=== PATIENT | female | born 1995 | race Caucasian/White ===

== ENCOUNTER 2021-11-19 16:13 | Inpatient (IN) ==
[2021-11-19] MEDS ORDERED: miSOPROStoL 200 MCG TABLET RECTAL PRN (16:48)
[2021-11-19] MEDS ORDERED: BUTORPHANOL 1 MG/ML VIAL IV PRN (16:48)
[2021-11-19] MEDS ORDERED: METHYLERGONOVINE 0.2 MG/1 ML AMP IM PRN (16:48)
[2021-11-19] MEDS ORDERED: TRANEXAMIC ACID 1,000 MG in SODIUM CHLORIDE 0.9% 100 ML IV PRN (16:48)
[2021-11-19] MEDS ORDERED: CARBOPROST TROMETHAMINE 250 MCG/ML AMP IM PRN (16:48)
[2021-11-19] MEDS ORDERED: OXYTOCIN/LR 20 UNIT/1,000 ML BAG IV ONE (16:48)
[2021-11-19 17:13] LABS: Basophils % 0.3 % (0.0-0.8); Eosinophils % 0.1 % (0.00-10.9); Hematocrit 38.1 VOL% (35.7-47.0); Hemoglobin 12.4 GM/DL (12.0-16.0); Immature Granulocytes % 0.8 %; Immature Granulocytes Absolute 0.07 #; Lymphocytes # 1.7 10*3/uL (1.4-4.0); Lymphocytes % 19.5 % (21.3-54.2); Mean Corpuscular HGB Conc 32.5 GM/DL (32-36); Mean Corpuscular Volume 80.7 FL (87-102); Mean Platelet Volume 11.1 FL (9.6-12.0); Monocytes # 0.6 10*3/uL (0.11-0.8); Monocytes % 6.4 % (1.7-12.7); Neutrophils % 72.9 % (38.7-73.9); Platelet Count 197 T/CUMM (130-400); Red Blood Count 4.72 MC/CUMM (3.8-5.5); Red Cell Distribution Width 15.1 % (9.3-17.3); White Blood Count 8.9 T/CUMM (4-12)
[2021-11-19] MEDS: LACTATED RINGERS 1,000 ML IV SCH (17:28)
[2021-11-19] MEDS: OXYTOCIN/LR 20 UNIT/1,000 ML BAG IV SCH (17:30)
[2021-11-19 17:31] LABS: Alanine Aminotransferase 23 U/L (13-56); Albumin 2.4 G/DL (3.4-5.0); Alkaline Phosphatase 438 U/L (45-117); Aspartate Amino Transferase 19 U/L (0-37); Bilirubin,Total < 0.39 MG/DL (0.20-1.00); Blood Urea Nitrogen 10 MG/DL (7-18); Calcium 9.1 MG/DL (8.5-10.1); Carbon Dioxide 19 MMOL/L (21-32); Chloride 108 MMOL/L (98-107); Glucose 88 MG/DL (74-106); Osmolality,Calculated 270.8 MOS/KG (273-304); Sodium 137 MMOL/L (136-145); Total Protein 6.8 G/DL (6.4-8.2)
[2021-11-19 17:42] LABS: Bilirubin,Direct 0.12 MG/DL (0.0-0.20); Uric Acid 6.6 MG/DL (2.6-6.0)
[2021-11-19 17:48] LABS: INR 0.9; PT Patient Result 9.8 SECS (10.1-12.1); Partial Thromboplastin Time 24.2 SECS (23.7-32.9)
[2021-11-19] MEDS ORDERED: AMPICILLIN INJ 2,000 MG in SODIUM CHLORIDE 0.9% 100 ML IV ONE (20:00)
[2021-11-19] MEDS ORDERED: AMPICILLIN INJ 1,000 MG in SODIUM CHLORIDE 0.9% 100 ML IV SCH (23:30)
[2021-11-20] MEDS: LACTATED RINGERS 1,000 ML IV SCH ×2 (01:30→09:48)
[2021-11-20] MEDS ORDERED: PROMETHAZINE 25 MG/1 ML VIAL IM PRN (10:21)
[2021-11-20] MEDS ORDERED: FAMOTIDINE 20 MG/2 ML VIAL IV ONE (10:21)
[2021-11-20] MEDS ORDERED: hydrOXYzine HCL 25 MG/1 ML VIAL IM PRN (10:21)
[2021-11-20] MEDS ORDERED: ePHEDrine 50 MG/ML VIAL IV PRN (10:21)
[2021-11-20] MEDS ORDERED: CITRIC ACID/SODIUM CITRATE 30 ML UDCUP PO ONE (10:21)
[2021-11-20] MEDS ORDERED: NALOXONE 0.4 MG/ML VIAL IV PRN (10:21)
[2021-11-20] MEDS ORDERED: diphenhydrAMINE 50 MG/1 ML VIAL IV PRN (10:21)
[2021-11-20] MEDS: ONDANSETRON 4 MG/2 ML VIAL IV PRN ×2 (10:32→22:46)
[2021-11-20] MEDS: BUTORPHANOL 2 MG/ML VIAL IV PRN ×2 (10:36→22:49)
[2021-11-20] MEDS: OXYTOCIN/LR 20 UNIT/1,000 ML BAG IV SCH (16:40)
[2021-11-20] MEDS ORDERED: DINOPROSTONE 10 MG VAG.INSERT VAG ONE (20:00)
[2021-11-21] MEDS: BUTORPHANOL 2 MG/ML VIAL IV PRN ×2 (04:34→09:17)
[2021-11-21] MEDS: ONDANSETRON 4 MG/2 ML VIAL IV PRN (09:14)
[2021-11-21] MEDS ORDERED: FAMOTIDINE 20 MG/2 ML VIAL IV ONE (09:30)
[2021-11-21] MEDS ORDERED: CITRIC ACID/SODIUM CITRATE 30 ML UDCUP PO ONE (09:30)
[2021-11-21] MEDS: LACTATED RINGERS 1,000 ML IV SCH ×3 (10:09→10:10)
[2021-11-21] MEDS: fentaNYL 2 MCG/ROPIV 0.2% EPID 100 ML EPIDURAL SCH ×2 (10:11→10:20)
[2021-11-21 12:39] LABS: Urine Appearance Clear (Clear); Urine Color Yellow (Yellow); Urine Specific Gravity 1.025 (1.001-1.035); Urine pH 5.5 (4.5-8.0)
[2021-11-21 12:40] LABS: Bilirubin,Urine Negative (Negative); Blood, Urine Moderate mg/dL (Negative); Glucose,Urine (UA) Negative (Negative); Ketones,Urine Negative (Negative); Nitrite,Urine Negative (Negative); Protein,Urine 30 mg/dL (Negative); Urine Urobilinogen 0.2 eU/dL (<2.0)
[2021-11-21 12:40] LABS: Cord Arterial Blood HCO3 17.3 MMOL/L
[2021-11-21 12:41] LABS: Mucus,Urine Occasional /LPF (Occasional); RBC,Urine 82 /HPF (0-4); Squamous Epithelial Cell,Urine Occasional /HPF (0-10)
[2021-11-21 12:43] LABS: Cord Venous Blood HCO3 19.3 MMOL/L; Cord Venous Blood PCO2 43.7 MMHG; Cord Venous Blood PO2 33.9
[2021-11-21] MEDS ORDERED: DIPH/TET/ACEL PERT BOOSTER VACCINE 0.5 ML VIAL IM ONE (12:47)
[2021-11-21] MEDS ORDERED: MEASLES/MUMPS/RUBELLA VACCINE 0.5 ML VIAL SUBCUT ONE (12:47)
[2021-11-21] MEDS ORDERED: oxyCODONE/ACETAMINOPHEN 5-325 MG TABLET PO PRN (12:47)
[2021-11-21] MEDS ORDERED: BISACODYL 10 MG SUPP RECTAL PRN (12:47)
[2021-11-21] MEDS ORDERED: LANOLIN 50% CREAM 0.3 OZ TUBE TOP PRN (12:47)
[2021-11-21] MEDS ORDERED: BENZOCAINE 20%/MENTHOL 0.5% SPRAY 56 GM CAN TOP PRN (12:47)
[2021-11-21] MEDS ORDERED: ACETAMINOPHEN 325 MG TABLET PO PRN (12:47)
[2021-11-21] MEDS ORDERED: HYDROCORTISONE 2.5% RECTAL CREAM 30 GM TUBE TOP PRN (12:47)
[2021-11-21] MEDS ORDERED: ONDANSETRON 4 MG/2 ML VIAL IV PRN (12:47)
[2021-11-21] MEDS ORDERED: WITCH HAZEL PADS 100/JAR TOP PRN (12:47)
[2021-11-21] MEDS ORDERED: RHO(D) IMMUNE GLOBULIN 300 MCG SYRINGE IM ONE (12:47)
[2021-11-21] MEDS ORDERED: OXYTOCIN/LR 20 UNIT/1,000 ML BAG IV ONE (12:47)
[2021-11-21] MEDS ORDERED: IBUPROFEN 800 MG TABLET PO PRN (12:47)
[2021-11-21] MEDS: DOCUSATE SODIUM 100 MG CAPSULE PO SCH (20:32)
[2021-11-21] MEDS: oxyCODONE/ACETAMINOPHEN 5-325 MG TABLET PO PRN (20:33)
[2021-11-22] MEDS: oxyCODONE/ACETAMINOPHEN 5-325 MG TABLET PO PRN ×2 (04:07→14:45)
[2021-11-22 05:47] LABS: Basophils % 0.4 % (0.0-0.8); Eosinophils % 0.2 % (0.00-10.9); Hematocrit 32.8 VOL% (35.7-47.0); Hemoglobin 10.3 GM/DL (12.0-16.0); Immature Granulocytes % 0.7 %; Immature Granulocytes Absolute 0.08 #; Lymphocytes # 1.8 10*3/uL (1.4-4.0); Lymphocytes % 16.7 % (21.3-54.2); Mean Corpuscular HGB Conc 31.4 GM/DL (32-36); Mean Corpuscular Volume 82.8 FL (87-102); Mean Platelet Volume 11.3 FL (9.6-12.0); Monocytes # 0.7 10*3/uL (0.11-0.8); Monocytes % 6.7 % (1.7-12.7); Neutrophils % 75.3 % (38.7-73.9); Platelet Count 171 T/CUMM (130-400); Red Blood Count 3.96 MC/CUMM (3.8-5.5); Red Cell Distribution Width 15.4 % (9.3-17.3); White Blood Count 10.8 T/CUMM (4-12)
[2021-11-22] MEDS: DOCUSATE SODIUM 100 MG CAPSULE PO SCH ×2 (11:20→20:53)
[2021-11-22] MEDS: CYCLOBENZAPRINE 10 MG TABLET PO PRN ×2 (11:21→23:17)
[2021-11-23] MEDS: DOCUSATE SODIUM 100 MG CAPSULE PO SCH (10:02)
[2021-11-23 11:52] VITALS: BP 131/83
== END 2021-11-23 12:40 | disposition home or self-care (01) | DRG 806 ==
LOC: N.LDOUT 16:13 → N.LD 16:14 → N.OB 11-21 14:45
PROVIDERS: ADMIT Obstetrics & Gynecology; ATTEND Obstetrics & Gynecology